=== PATIENT | female | born 1960 | race Caucasian/White ===

== ENCOUNTER 2016-09-26 08:33 | Outpatient (CLI) | payer BC | END 2016-09-26 08:34 | disposition home or self-care (01) | DX: Z13.820 Encounter for screening for osteoporosis (principal) ==

== ENCOUNTER 2016-09-29 08:38 | Outpatient (CLI) | payer BC, OTHER | END 2016-09-29 08:39 | disposition home or self-care (01) | DX: E78.5 Hyperlipidemia, unspecified (principal); E55.9 Vitamin D deficiency, unspecified; I10 Essential (primary) hypertension ==

== ENCOUNTER 2019-10-14 11:49 | Emergency (ER) | payer BC, OTHER ==
--- NOTE | 2019-10-14 13:07 | XRAY Report ---
Reason: cough Procedure Date: 10/14/2019 Accession Number: [id number] / [id number] Procedure: XR - Chest 2 View X-Ray CPT Code: 04679 Final Report FULL RESULT: EXAM: CHEST RADIOGRAPHY EXAM DATE: 10/14/2019 12:31 PM. CLINICAL HISTORY: Cough. COMPARISON: XR CHEST PA AND LAT 08/31/2012 6:25 PM. TECHNIQUE: 2 views. FINDINGS: Lungs/Pleura: No focal opacities evident. No pleural effusion. No pneumothorax. Normal volumes. Mediastinum: Calcified lymph nodes in the subcarinal and right hilar stations redemonstrated. The heart is normal in size. No pulmonary edema. Other: None. IMPRESSION: No focal consolidation. RADIA
[2019-10-14] MEDS ORDERED: IPRATROPIUM/ALBUTEROL 3 ML NEB INH STA (13:08)
--- NOTE | 2019-10-14 13:11 | ED Physician Documentation ---
History of Present Illness - Stated complaint Stated Complaint: COUGH, SOA - Chief complaint Chief Complaint: Resp - History obtained from History obtained from: Patient - History of Present Illness Timing: How many days ago (5) Pain level max: 0 Pain level now: 0 - Additonal information Additional information: 59-year-old female presents to the emergency department with a cough and fevers for the past 5 days. Last fever was yesterday. None today. Recently started on prednisone and doxycycline. Is using her inhalers and nebulizers at home. Still has mild shortness of breath. Worse with exertion better with rest. Does not use oxygen at home. 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 - Present Medications Home Medications: Ambulatory Orders Medication Instructions Recorded Confirmed Albuterol Sulfate [Ventolin Hfa] 1 - 2 puffs IH ONCE PRN 05/02/13 06/30/16 Cholecalciferol (Vitamin D3) 5,000 unit PO DAILY 05/02/13 06/30/16 [Vitamin D] Hydrochlorothiazide 25 mg PO DAILY 05/02/13 06/30/16 Montelukast [Singulair] 10 mg PO QPM 05/02/13 06/30/16 Raloxifene [Evista] 60 mg PO DAILY 05/02/13 06/30/16 Losartan [Cozaar] 50 mg PO DAILY 06/30/16 06/30/16 Mometasone/Formoterol [Dulera 100 1 puffs INH BID 06/30/16 06/30/16 Mcg/5 Mcg Inhaler] Prazosin [Minipress] 1 mg PO DAILY 06/30/16 06/30/16 predniSONE [Deltasone] 10 mg PO [id number] #[id number] tab 10/14/19 - Allergies Allergies/Adverse Reactions: Allergies Allergy/AdvReac Type Severity Reaction Status Date / Time noel inhbitors AdvReac cough Uncoded 10/14/19 11:59 PD ED PE NORMAL - Vitals Vital signs reviewed: Yes - General General: Alert and oriented X 3, No acute distress, Well developed/nourished - HEENT HEENT: PERRL, Ears normal, Moist mucous membranes, Pharynx benign - Neck Neck: Supple, no meningeal sign, No adenopathy - Cardiac Cardiac: RRR, Strong equal pulses - Respiratory Respiratory: No respiratory distress, Clear bilaterally - Abdomen Abdomen: Soft, Non tender, Non distended - Derm Derm: Warm and dry, No rash - Extremities Extremities: No edema - Neuro Neuro: Alert and oriented X 3 - Psych Psych: Normal mood, Normal affect Results - Vitals Vitals: Vital Signs - 24 hr 10/14/19 11:54 Heart Rate 99 Respiratory 20 Rate Blood Pressure 181/101 H O2 Saturation 95 Oxygen O2 Source Room air - Rads (name of study) Chest x-ray Radiology: Prelim report reviewed, EMP read contemporaneously, See rad report (No acute disease) PD MEDICAL DECISION MAKING - ED course Complexity details: reviewed results, re-evaluated patient, considered differential, d/w patient ED course: Patient with what appears to be a COPD flare. She is well-appearing, nontoxic. No respiratory distress. Does have diffuse wheezing bilaterally which is improved after breathing treatment. Will place her on a gradual steroid taper. She will continue her doxycycline at home. No pneumonia on chest x-ray. Patient counseled regarding signs and symptoms for which I believe and urgent re-evaluation would be necessary. Patient with good understanding of and agreement to plan and is comfortable going home at this time This document was made in part using voice recognition software. While efforts are made to proofread this document, sound alike and grammatical errors may occur. We did discuss coronavirus testing, but as she is going to be quarantined for 14 days at home anyway, we will hold off on testing at this time. Departure - Departure Disposition: Home, Self Care Clinical Impression: Moderate COPD (chronic obstructive pulmonary disease) Condition: Good Instructions: ED COPD Flare Follow-Up: Patrica Mae MD [Primary Care Provider] - (in 10-14 days) Prescriptions: predniSONE [Deltasone] 10 mg PO [id number] #[id number] tab Comments: Continue your medications at home. Return if you worsen. Follow-up with your doctor for further care. [facility], do not return to work or school until your symptoms have subsided for at least 24 hours. Forms: Activity restrictions
[2019-10-14 13:17] VITALS: BP 154/98
== END 2019-10-14 14:00 | disposition home or self-care (01) ==
LOC: ED 11:49
DX: J44.9 Chronic obstructive pulmonary disease, unspecified (principal); I10 Essential (primary) hypertension
CPT/HCPCS: 71046; 94640; 99283; 99284

== ENCOUNTER 2020-08-11 13:24 | Outpatient (CLI) | payer BC, OTHER ==
--- OUTSIDE RECORDS SUMMARY | 2020-08-15 01:51 | EXTERNAL MEDICAL SUMMARY RPT | Continuity of Care Document ---
:1960 Demographics Phone Unavailable Preferred Language Unknown Marital Status Unknown Anabaptism Affiliation Unknown Race Unknown Ethnic Group Unknown Author Organization [place] Address [address] [phone] Phone Care Team Providers Name Role Phone Tu Unavailable Unavailable Yaa Unavailable Unavailable Problems date description facility 2013-10-04 15:15 VITAMIN D DEFICIENCY NOS [facility] 2013-10-04 15:15 SCREEN FOR OTH SPECIF CONDITIONS [facility] 2013-12-06 09:11 DIZZINESS AND GIDDINESS [facility] 2014-06-23 08:14 VITAMIN D DEFICIENCY NOS [facility] 2014-06-23 08:14 HYPERLIPIDEMIA NEC/NOS [facility] 2014-06-23 08:14 HYPERTENSION NOS [facility] 2015-11-08 14:02 OTHER FATIGUE [facility] 2016-03-10 15:26 EFFUSION, LEFT KNEE [facility] 2016-03-10 15:26 CHONDROMALACIA, LEFT KNEE [facility] 2016-03-10 15:26 OTH TEAR OF MEDIAL MENISCUS, [facility] CURRENT INJURY, LEFT KNEE, INIT 2016-09-26 08:33 ENCOUNTER FOR SCREENING FOR [facility] OSTEOPOROSIS 2016-09-29 08:38 VITAMIN D DEFICIENCY, UNSPECIFIED [facility] 2016-09-29 08:38 HYPERLIPIDEMIA, UNSPECIFIED [facility] 2016-09-29 08:38 ESSENTIAL (PRIMARY) HYPERTENSION [facility] 2017-06-03 07:57 HYPERLIPIDEMIA, UNSPECIFIED [facility] 2017-06-03 07:57 ESSENTIAL (PRIMARY) HYPERTENSION [facility] 2017-06-03 07:57 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 [facility]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 2019-10-14 11:49 ESSENTIAL (PRIMARY) HYPERTENSION [facility] 2019-10-14 11:49 CHRONIC OBSTRUCTIVE PULMONARY [facility] DISEASE, UNSPECIFIED 2019-10-14 11:49 WHEEZING [facility] 2020-08-11 13:24 MILD PERSISTENT ASTHMA, [facility] UNCOMPLICATED 2020-08-11 13:24 UNSPECIFIED ASTHMA, UNCOMPLICATED [facility] 2020-08-11 13:30 MILD PERSISTENT ASTHMA, [facility] UNCOMPLICATED 2020-08-11 13:30 UNSPECIFIED ASTHMA, UNCOMPLICATED [facility] 2020-08-16 13:15 OTHER ASTHMA [facility] Allergies date description facility NO KNOWN ALLERGIES [facility] MONOSODIUM GLUTAMATE [facility] APIXABAN [facility] CEPHALEXIN [facility] NO KNOWN ALLERGIES [facility] FINASTERIDE [facility] SPIRONOLACTONE [facility] TERAZOSIN [facility] WARFARIN [facility] SULFA ANTIBIOTICS [facility] UNCODED NONSCREENABLE ALLERGEN [facility] WARFARIN AND RELATED [facility] noel inhbitors [facility] OLANZAPINE [facility] Social History date description facility [id number]
== END 2020-08-11 13:25 | disposition home or self-care (01) ==
LOC: RT 13:24
PROVIDERS: ATTEND Internal Medicine
DX: J45.30 Mild persistent asthma, uncomplicated (principal)
CPT/HCPCS: 94010

== ENCOUNTER 2022-10-28 10:25 | Day surgery (SDC) | payer BC, OTHER ==
[2022-10-28] MEDS ORDERED: LACTATED RINGERS 1,000 ML IV ONE ×2 (12:26→16:00)
[2022-10-28] MEDS ORDERED: PROPOFOL 500 MG/50 ML 500 MG/50 ML VIAL ONE (13:15)
--- NOTE | 2022-10-28 14:31 | ANESTHESIA ---
Pre-Anesthesia VS, & Labs - Diagnosis screening exam - Procedure colonoscopy Vital Signs: Temp Pulse Resp BP Pulse Ox O2 Flow Rate 36.2 C L 79 13 152/95 H 98 10/28/22 12:27 10/28/22 12:27 10/28/22 12:27 10/28/22 12:10/28/22 12:27 Height: 5 ft 4 in Weight (kg): 78 kg Body Mass Index: 29.5 BMI Classification: Overweight - NPO >8 hours - Is Patient ?: No Home Medications and Allergies Home Medications: Ambulatory Orders Mometasone/Formoterol [Dulera 100 Mcg-5 Mcg Inhaler] 2 puffs INH DAILY PM 10/27/22 Albuterol Sulfate [Ventolin Hfa] 1 - 2 puffs IH ONCE PRN 05/02/13 Cholecalciferol (Vitamin D3) [Vitamin D] 5,000 unit PO DAILY 05/02/13 Montelukast [Singulair] 10 mg PO QPM 05/02/13 Mometasone/Formoterol [Dulera 100 Mcg/5 Mcg Inhaler] 1 puffs INH BID 06/30/16 Prazosin [Minipress] 1 mg PO DAILY 06/30/16 Mometasone/Formoterol [Dulera 100 Mcg-5 Mcg Inhaler] 2 puffs INH DAILY PM 10/27/22 Allergies/Adverse Reactions: Allergies Allergy/AdvReac Type Severity Reaction Status Date / Time noel inhbitors AdvReac cough Uncoded 10/14/19 11:59 Anes History & Medical History - Anesthetic History Anesthesia Complications: reports: No previous complications - Medical History Cardiovascular: reports: Hypertension Pulmonary: reports: Asthma Gastrointestinal: reports: None Urinary: reports: None Neuro: reports: Headaches Musculoskeletal: reports: None Endocrine/Autoimmune: reports: None Blood Disorders: reports: None Skin: reports: None Smoking Status: Former smoker Psychosocial: reports: No issues indicated History of Cancer?: No - Surgical History General: reports: Colonoscopy Eyes Ears Nose Throat (EENT): reports: Tonsil/Adenoidectomy Gynecologic: reports: section Orthopedic: reports: Other Exam General: Alert, Oriented x3, Cooperative, No acute distress Dental: WNL Mouth Openin Fingerbreadth Neck Mobility: Normal Mallampati classification: II Thyromental Distance: 4-6 cm Mental/Cognitive Status: Alert/Oriented X3, Normal for patient Plan Anesthesia Type: General, Total IV Consent for Procedure(s) Verified and Reviewed: Yes Code Status: Attempt Resuscitation ASA classification: 2-Mild systemic disease Is this case an emergency?: No
[2022-10-28 16:18] VITALS: BP 140/96
--- NOTE | 2022-10-28 16:37 | ANESTHESIA POST OP EVALUATION ---
Anesthesia Post Eval - Post Anesthesia Eval Vitals: Last Vital Signs Temp 36.1 C L 10/28/22 16:00 Pulse 85 10/28/22 16:17 Resp 19 10/28/22 16:17 BP 140/96 H 10/28/22 16:17 Pulse Ox 98 10/28/22 16:17 O2 Flow Rate CV Function Including HR & BP: Stable Pain Control: Satisfactory Nausea & Vomiting: Negative Mental Status: Baseline Respiratory Status: Airway Patent Hydration Status: Satisfactory Anesthesia Complications: None
== END 2022-10-28 10:26 | disposition home or self-care (01) ==
LOC: SDS 10:25
PROVIDERS: ATTEND Surgery
PROC: 0DBN8ZZ Excision of Sigmoid Colon, Via Natural or Artificial Opening Endoscopic (ICD-10-PCS; principal; 2022-10-28 12:00)
DX: Z12.11 Encounter for screening for malignant neoplasm of colon (principal); K64.9 Unspecified hemorrhoids; K57.30 Diverticulosis of large intestine without perforation or abscess without bleeding; K63.5 Polyp of colon; Z87.891 Personal history of nicotine dependence; J45.909 Unspecified asthma, uncomplicated